=== PATIENT | female | born 1975 | race African-American/Black ===

== ENCOUNTER 2016-07-28 22:43 | Emergency (ER) | payer BC ==
[~2016-07-28] VITALS: Ht 172.7 cm; Wt 162.6 kg
[~2016-07-28 22:43] MED LIST: ACYCLOVIR800 MG PO; DILAUDID2 MG PO; NAPROXEN500 MG PO; OXYCODONE H5 MG/5 ML PO; PREDNISONE10 MG PO; PREDNISONE20 MG PO; PROAIR HFA8.5 GM IH; SYMBICORT60 INHALAT IH
[2016-07-28 23:38] LABS: EOSINOPHIL (%) 3.8 % (0-5); EOSINOPHIL COUNT 0.3 K/uL (0-0.3); HEMATOCRIT 36.8 % (36.0-46.0); IMMATURE GRANULOCYTE (%) 0.2 % (0.0-0.7); IMMATURE GRANULOCYTE COUNT 0.1 K/uL; MCH 26.7 PG (29.0-34.0); MCHC 32.9 G/DL (30.0-36.0); MCV 81.1 FL (83-99); MEAN PLAT.VOLUME 9.4 uM^3 (9.5-12.4); MONOCYTE (%) 5.6 % (3-12); MONOCYTE COUNT 0.4 K/uL (0-0.8); NEUTROPHIL (%) 60.1 % (45-76); PLATELET COUNT 373 K/uL (156-360); RBC DIS.WIDTH-CV 14.4 % (11.8-14.6); RBC DIS.WIDTH-SD 41.7 % (39-53); RED BLOOD COUNT 4.54 M/uL (3.80-5.20); WHITE BLOOD COUNT 6.7 K/uL (4.1-10.2)
[2016-07-29] MEDS ORDERED: FIORICET,ESG1 TABLET PO (01:09)
[2016-07-29 01:28] VITALS: BP 142/86
== END 2016-07-29 01:29 | disposition home or self-care (01) ==
LOC: RME 22:43 → EME 22:43 → RME 07-29 01:29
PROVIDERS: Physician Assistant
DX: R51 Headache (principal); R23.3 Spontaneous ecchymoses; N64.59 Other signs and symptoms in breast; Z73.3 Stress, not elsewhere classified; J45.909 Unspecified asthma, uncomplicated; Z87.891 Personal history of nicotine dependence
CPT/HCPCS: 70450; 85025; 99281; 99284

== ENCOUNTER 2017-01-29 08:39 | Day surgery (SDC) | payer BC ==
[~2017-01-29] VITALS: Ht 172.7 cm; Wt 159.0 kg
[~2017-01-29 08:39] MED LIST changes: +FIORICET,ESG1 TABLET PO; +OSTEO BI-FLEX1 EAC4 PO; +VITAMIN D400 UNIT PO
[2017-01-29 09:17] VITALS: BP 132/72
[2017-01-29] MEDS ORDERED: HYDROCODON-ACE1 EAC7 PO (10:34)
[2017-01-29] MEDS ORDERED: IBUPROFEN800 MG PO (10:34)
[2017-01-29 11:50] VITALS: BP 144/80
== END 2017-01-29 12:20 | disposition home or self-care (01) ==
LOC: SDC 08:39
PROC: 0U5B8ZZ Destruction of Endometrium, Via Natural or Artificial Opening Endoscopic (ICD-10-PCS; principal; 2017-01-29)
DX: N84.0 Polyp of corpus uteri (principal); N87.9 Dysplasia of cervix uteri, unspecified; N92.0 Excessive and frequent menstruation with regular cycle; N85.2 Hypertrophy of uterus; E66.01 Morbid (severe) obesity due to excess calories; Z68.43 Body mass index [BMI] 50.0-59.9, adult; J45.40 Moderate persistent asthma, uncomplicated; Z87.891 Personal history of nicotine dependence; Z80.41 Family history of malignant neoplasm of ovary; Z80.42 Family history of malignant neoplasm of prostate; Z83.3 Family history of diabetes mellitus; Z82.49 Family history of ischemic heart disease and other diseases of the circulatory system
CPT/HCPCS: 88305; J0690; J1100; J1170; J1885; J2250; J2405; J3010